=== PATIENT | male | born 1970 | race African-American/Black ===

== ENCOUNTER 2023-06-20 11:25 | Emergency (ER) | payer SELFPAY ==
[2023-06-20 11:29] VITALS: BP 166/85; PULSE 53; RESP 16; TEMP 36.7; O2SAT 100
[2023-06-20 11:34] VITALS: PULSE 53
--- NOTE | 2023-06-20 11:40 | ED.GENADULT ---
HPI - General Adult General Chief complaint: Dizziness Stated complaint: dizziness Time Seen by Provider: 06/20/23 11:28 History of Present Illness HPI narrative: patient is a 53-year-old male who presents ER with spinning dizziness. Sudden onset this morning. Worse with lying down and sitting up. He has had situations like this in the past but today is more persistent. No nausea or vomiting. No weakness or numbness in arm or leg. No slurred speech. He has not fallen or struck his head. No additional concerns. Denies headache. No sinus congestion or sore throat or productive cough. Related Data Allergies Allergy/AdvReac Type Severity Reaction Status Date / Time No Known Allergies Allergy Verified 06/20/23 11:44 Review of Systems Review of Systems: All systems reviewed & are unremarkable except as noted in HPI and below Constitutional: Constitutional: Reports no additional constitutional complaints ENT: Reports dizziness, Denies nasal congestion and Denies sore throat Cardiovascular: Cardiovascular: Reports no additional cardiovascular complaints Respiratory: Respiratory: Reports no additional respiratory complaints Neurologic: Reports system reviewed and no additional complaints, except as documented PMFSH Past Medical History Medical History (Updated 06/20/23 @ 13:24 by Ko Reed MD) Hypertension Surgical History Surgical History (Updated 06/20/23 @ 11:41 by Ko Reed MD) No pertinent past surgical history Exam Narrative: GENERAL: Well-appearing, well-nourished, and in no acute distress. HEAD: Normocephalic, atraumatic. EYES: PERRL and EOMI. ENT: Mucous membranes moist. tympanic membranes normal bilaterally. Right ear pops with manipulation of external ear. NECK: Supple. CHEST: Clear to auscultation. No respiratory distress. HEART: Regular rate and rhythm. Normal peripheral pulses. EXTREMITIES: Normal range of motion. No edema. NEURO: Ambulates with a steady gait. Alert and oriented x3. PSYCH: Normal mood and affect. Course Vital Signs Vital signs: Vital Signs Temperature 98.0 F 06/20/23 11:29 Pulse Rate 53 L 06/20/23 11:29 Respiratory Rate 16 06/20/23 11:29 Blood Pressure 166/85 H 06/20/23 11:29 Pulse Oximetry 100 06/20/23 11:29 Oxygen Delivery Room Air 06/20/23 11:29 Temperature 98.0 F 06/20/23 11:29 Pulse Rate 50 L 06/20/23 12:49 Respiratory Rate 15 06/20/23 12:49 Blood Pressure 142/81 H 06/20/23 12:49 Pulse Oximetry 100 06/20/23 12:49 Oxygen Delivery Room Air 06/20/23 11:29 Medical Decision Making Vital Signs Vital Signs: Vital Signs Temperature 98.0 F 06/20/23 11:29 Pulse Rate 53 L 06/20/23 11:29 Respiratory Rate 16 06/20/23 11:29 Blood Pressure 166/85 H 06/20/23 11:29 Pulse Oximetry 100 06/20/23 11:29 Oxygen Delivery Room Air 06/20/23 11:29 Temperature 98.0 F 06/20/23 11:29 Pulse Rate 50 L 06/20/23 12:49 Respiratory Rate 15 06/20/23 12:49 Blood Pressure 142/81 H 06/20/23 12:49 Pulse Oximetry 100 06/20/23 12:49 Oxygen Delivery Room Air 06/20/23 11:29 Discharge Plan Discharge Clinical Impression: Vertigo Patient Disposition: Home, Self-Care Condition: Stable Instructions: Vertigo (ED) Additional Instructions: Return ER if you have worsening dizziness, you have new focal weakness of an arm or leg, or you have additional concerns. The meclizine may make you fatigued, it is not recommended that you operate heavy machinery when taking this medication. Prescriptions: New meclizine 12.5 mg tablet 12.5 mg PO TID PRN (Reason: dizziness) Qty: 20 0RF Follow-up/Referrals: PHYSICIAN NOT ON STAFF,NONSTAFF [Primary Care Provider] -
[2023-06-20] MEDS: Please add drug allergy info to patient profile. XX (11:44)
[2023-06-20 11:45] VITALS: BP 146/86; PULSE 53; RESP 23; O2SAT 98
[2023-06-20] MEDS: MECLIZINE HCL 25 MG TABLET PO (11:45)
[2023-06-20 12:49] VITALS: BP 142/81; PULSE 50; RESP 15; O2SAT 100
[2023-06-20 13:43] VITALS: BP 156/87; PULSE 59; RESP 22; TEMP 36.8; O2SAT 100
== END 2023-06-20 13:44 | disposition home or self-care (01) ==
PROVIDERS: Emergency Provider Emergency Medicine
DX: R42 Dizziness and giddiness (principal); I10 Essential (primary) hypertension
CPT/HCPCS: 99284; A9270